=== PATIENT | female | born 1995 | race African-American/Black ===

== ENCOUNTER 2017-09-18 13:02 | Emergency (ER) | payer OTHER ==
[~2017-09-18 13:02] MED LIST: DEPO150I IM
[2017-09-18 13:04] VITALS: BP 149/84; PULSE 86; RESP 16; TEMP 98.3; O2SAT 100
--- NOTE | 2017-09-18 13:50 | PD ---
HPI Chief Complaint: Chest Pain Time Seen by Provider: 13:49 (Anni Ohara) Time Seen by Provider: 14:14 (Megha Damian DO) Travel History International Travel<30 days: No Contact w/Intl Traveler<30days: No Traveled to known affect area: No (Anni Ohara) History of Present Illness HPI Patient is a 21-year-old female presents to emergency room with complaints of chest pain. Patient reports that chest began 3 days ago, reports that chest pain is located her left chest and is sharp and stabbing in nature. Patient reports that it hurts every time she takes deep breath, reports that it hurts when she moves as well. Patient reports that chest pain is not associated with diaphoresis, nausea or vomiting. Patient denies any cough or chest wall injuries. Patient reports no drug abuse, denies any recent travels or trips, denies any history of PE or DVT. Patient denies any family history of early coronary disease. Patient reports that she did not take anything to help with her chest pain symptoms. Patient with no history of hypertension, diabetes, hyperlipidemia, or CAD. (Megha Damian DO) PFSH Past Medical History ?: Not LMP: Now (Anni Ohara) Medical History: Denies Significant Hx (Megha Damian DO) Past Surgical History Surgical History: No Previous Surgery (Megha Damian DO) Family History Family History: Negative (marijuana) Family Myocardial Infarction: No (Megha Damian DO) Social History Alcohol Use: No Tobacco Use: No Substance Use: Yes (Megha Damian DO) Allergies-Medications (Allergen,Severity, Reaction): Coded Allergies: No Known Allergies (Unverified Adverse Reaction, Unknown, 08/14/17) Reported Meds & Prescriptions Reported Meds & Active Scripts Active Depo-Provera Inj (Medroxyprogesterone Inj) 150 Mg/Ml Inj 150 Mg IM Q90D (Megha Damian DO) Review of Systems General / Constitutional: No: Fever Eyes: No: Visual changes HENT: No: Headaches Cardiovascular: Positive: Chest Pain or Discomfort, No: Palpitations, Irregular Rhythm, Tachycardia, Syncope, Dyspnea on exertion, Edema Respiratory: No: Cough, Shortness of Breath, Wheezing Gastrointestinal: No: Nausea, Vomiting, Abdominal Pain Genitourinary: No: Dysuria Musculoskeletal: No: Pain Skin: No Rash Neurologic: No: Weakness Psychiatric: No: Depression Endocrine: No: Polydipsia Hematologic/Lymphatic: No: Easy Bruising (Megha Damian DO) Physical Exam Narrative GENERAL: NAD, Nontoxic SKIN: Focused skin assessment warm/dry. HEAD: Atraumatic. Normocephalic. EYES: Pupils equal and round. No scleral icterus. No injection or drainage. ENT: No nasal bleeding or discharge. Mucous membranes pink and moist. NECK: Trachea midline. No JVD. CARDIOVASCULAR: Regular rate and rhythm. No murmur appreciated. Patient with reproducible left sided chest wall tenderness RESPIRATORY: No accessory muscle use. Clear to auscultation. Breath sounds equal bilaterally. GASTROINTESTINAL: Abdomen soft, non-tender, nondistended. Hepatic and splenic margins not palpable. MUSCULOSKELETAL: No obvious deformities. No clubbing. No cyanosis. No edema. NEUROLOGICAL: Awake and alert. No obvious cranial nerve deficits. Motor grossly within normal limits. Normal speech. PSYCHIATRIC: Appropriate mood and affect; insight and judgment normal. (Megha Damian DO) Data Data Last Documented VS Vital Signs Date Time Temp Pulse Resp B/P (MAP) Pulse Ox O2 Delivery O2 Flow Rate FiO2 09/18/17 13:04 98.3 86 16 149/84 (105) 100 Room Air (Megha Damian DO) Orders Orders Electrocardiogram (09/18/17 13:12) Ckmb (Isoenzyme) Profile (09/18/17 13:12) Complete Blood Count With Diff (09/18/17 13:12) Comprehensive Metabolic Panel (09/18/17 13:12) Magnesium (Mg) (09/18/17 13:12) Prothrombin Time / Inr (Pt) (09/18/17 13:12) Act Partial Throm Time (Ptt) (09/18/17 13:12) Troponin I (09/18/17 13:12) Chest, Pa & Lat (09/18/17 13:12) CKMB (09/18/17 13:25) CKMB% (09/18/17 13:25) Ed Urine Pregnancytest Poc (09/18/17 14:20) Ketorolac Inj (Toradol Inj) (09/18/17 14:30) (Megha Damian DO) Labs Laboratory Tests Test 09/18/17 13:25 White Blood Count 8.6 TH/MM3 Red Blood Count 4.74 MIL/MM3 Hemoglobin 13.1 GM/DL Hematocrit 39.1 % Mean Corpuscular Volume 82.4 FL Mean Corpuscular Hemoglobin 27.7 PG Mean Corpuscular Hemoglobin Concent 33.6 % Red Cell Distribution Width 15.3 % Platelet Count 277 TH/MM3 Mean Platelet Volume 8.2 FL Neutrophils (%) (Auto) 56.1 % Lymphocytes (%) (Auto) 36.8 % Monocytes (%) (Auto) 6.1 % Eosinophils (%) (Auto) 0.6 % Basophils (%) (Auto) 0.4 % Neutrophils # (Auto) 4.8 TH/MM3 Lymphocytes # (Auto) 3.2 TH/MM3 Monocytes # (Auto) 0.5 TH/MM3 Eosinophils # (Auto) 0.1 TH/MM3 Basophils # (Auto) 0.0 TH/MM3 CBC Comment DIFF FINAL Differential Comment Prothrombin Time 10.8 SEC Prothromb Time International Ratio 1.1 RATIO Activated Partial Thromboplast Time 27.9 SEC Blood Urea Nitrogen 7 MG/DL Creatinine 0.80 MG/DL Random Glucose 86 MG/DL Total Protein 7.6 GM/DL Albumin 4.0 GM/DL Calcium Level 9.2 MG/DL Magnesium Level 2.2 MG/DL Alkaline Phosphatase 67 U/L Aspartate Amino Transf (AST/SGOT) 5 U/L Alanine Aminotransferase (ALT/SGPT) 16 U/L Total Bilirubin 0.4 MG/DL Sodium Level 139 MEQ/L Potassium Level 3.8 MEQ/L Chloride Level 107 MEQ/L Carbon Dioxide Level 25.9 MEQ/L Anion Gap 6 MEQ/L Estimat Glomerular Filtration Rate 109 ML/MIN Total Creatine Kinase 189 U/L Creatine Kinase MB 0.5 NG/ML Troponin I LESS THAN 0.02 NG/ML (Megha Damian DO) [facility] Medical Decision Making Medical Screen Exam Complete: Yes Emergency Medical Condition: Yes Medical Record Reviewed: Yes Narrative Course 1355: EKG with NSR; reviwed by Dr. Kiser. (Anni Ohara) Medical Screen Exam Complete: Yes Emergency Medical Condition: Yes Medical Record Reviewed: Yes Interpretation(s) EKG at 1318: NSR at 87bpm, qt/qtc: 329/374, nonspecific t wave changes, no acute st seg changes Vital Signs Date Time Temp Pulse Resp B/P (MAP) Pulse Ox O2 Delivery O2 Flow Rate FiO2 09/18/17 13:04 98.3 86 16 149/84 (105) 100 Room Air Differential Diagnosis Costochondritis, ACS, arrhythmia, PE, pneumothorax Narrative Course During the course of the patients emergency department visit, the patients history, examination, and differential diagnosis were reviewed with the patient. The patient was placed on a hospital monitor with oximetry and frequent blood pressure monitoring. The patient had an IV access obtained and blood work sent for analysis. The patient was initially provided IV toradol. The patients laboratory studies were reviewed and remarkable for: CBC & BMP Diagram 09/18/17 13:25 Total Protein 7.6, Albumin 4.0, Calcium Level 9.2, Magnesium Level 2.2, Alkaline Phosphatase 67, Aspartate Amino Transf (AST/SGOT) 5 L, Alanine Aminotransferase (ALT/SGPT) 16, Total Bilirubin 0.4 Trop 0.02 Radiology studies were reviewed and remarkable for: Last Impressions Chest X-Ray 09/18/17 1312 Signed Impressions: Service Date/Time: September 13:32 - CONCLUSION: No acute cardiopulmonary process. Kevin Glover MD Patient low risk for PE and ACS at this time. She has no cardiac risk factors, heart score is 0. Patient is feeling better after she was given IV toradol. Patient with most likely costochondritis. I reviewed all labs and studies with patient in detail, she will follow up with her pcp and will return to ER as needed (Megha Damian DO) Diagnosis Primary Impression: Costochondritis, acute Referrals: Ronnie Merino MD Patient Instructions: Narcotic given in the ED Additional Instructions: Please follow up with defence intelligence analyst as needed Please follow up with your primary care doctor in 2-3 days Return to the ER if symptoms worsen or progress Return to the ER as needed Med/Other Pt SpecificInfo: Prescription(s) given (Megha Damian DO) Scripts Ibuprofen (Ibuprofen) 600 Mg Tab 600 MG PO Q6H Y for Pain/Inflammation, #40 TAB 0 Refills Prov: Megha Damian DO 09/18/17 Disposition: 01 DISCHARGE HOME Condition: Stable Anni Ohara Sep 18, 2017 13:50 Megha Damian DO Sep 18, 2017 14:41
[2017-09-18 13:54] LABS: AUTOMATED NEUTROPHIL # 4.8 TH/MM3 (1.8-7.7); BASOPHIL % 0.4 % (0.0-2.0); EOSINOPHIL # 0.1 TH/MM3 (0-0.4); EOSINOPHIL % 0.6 % (0.0-4.0); HEMATOCRIT 39.1 % (35.0-46.0); HEMOGLOBIN 13.1 GM/DL (11.6-15.3); LYMPH % 36.8 % (9.0-44.0); LYMPHOCYTE # 3.2 TH/MM3 (1.0-4.8); MEAN CELL VOLUME 82.4 FL (80.0-100.0); MEAN CORPUSCULAR HEMOGLOBIN 27.7 PG (27.0-34.0); MEAN CORPUSCULAR HGB CONC 33.6 % (32.0-36.0); MEAN PLATELET VOLUME 8.2 FL (7.0-11.0); MONO % 6.1 % (0.0-8.0); MONOCYTE # 0.5 TH/MM3 (0-0.9); NEUT % 56.1 % (16.0-70.0); PLATELET COUNT 277 TH/MM3 (150-450); RED BLOOD COUNT 4.74 MIL/MM3 (4.00-5.30); RED CELL DISTRIBUTION WIDTH 15.3 % (11.6-17.2); WHITE BLOOD COUNT 8.6 TH/MM3 (4.0-11.0)
--- NOTE | 2017-09-18 13:54 | RADRPT ---
EXAM DATE/TIME: 09/18/2017 13:32 [facility] COMPARISON: No previous studies available for comparison. INDICATIONS : Chest pain, shortness of breath. MEDICAL HISTORY : Smoker. SURGICAL HISTORY : None. ENCOUNTER: Initial ACUITY: 4 - 6 days PAIN SCORE: 10/10 LOCATION: Left chest FINDINGS: PA and lateral views of the chest demonstrate the lungs to be symmetrically aerated without evidence of mass, infiltrate or effusion. The cardiomediastinal contours are unremarkable. Osseous structure s are intact. CONCLUSION: No acute cardiopulmonary process. Kevin Glover MD on September 18, 2017 at 13:52 Board Certified Radiologist. This report was verified electronically.
[2017-09-18 14:08] LABS: INTERNATIONAL NORMALIZED RATIO 1.1 RATIO; PROTHROMBIN TIME - PATIENT 10.8 SEC (9.8-11.6)
[2017-09-18 14:11] LABS: ALT (GPT) 16 U/L (10-53); AST (GOT) 5 U/L (15-37); BICARBONATE 25.9 MEQ/L (21.0-32.0); BLOOD UREA NITROGEN 7 MG/DL (7-18); CALCIUM 9.2 MG/DL (8.5-10.1); CHLORIDE 107 MEQ/L (98-107); GLOMERULAR FILTRATION RATE 109 ML/MIN (>89); GLUCOSE,RANDOM 86 MG/DL (74-106); MAGNESIUM 2.2 MG/DL (1.5-2.5); SODIUM (NA) 139 MEQ/L (136-145)
[2017-09-18 14:16] LABS: ALKALINE PHOSPHATASE 67 U/L (45-117); TOTAL BILIRUBIN ADULT 0.4 MG/DL (0.2-1.0); TOTAL PROTEIN 7.6 GM/DL (6.4-8.2); TROPONIN I LESS THAN 0.02 NG/ML (0.02-0.05)
[2017-09-18] MEDS ORDERED: KETOROLAC TROMETHAMINE 30 MG/ML (IVP) VIAL IV PUSH ONE (14:30)
[2017-09-18] MEDS ORDERED: IBUP-232 PO (16:40)
--- NOTE | 2017-09-20 12:22 | EKG ---
Date Performed: 09/18/2017 Time Performed: 13:18:57 PTAGE: 21 years EKG: Sinus rhythm WITH SINUS ARRHYTHMIA NONSPECIFIC T-WAVE ABNORMALITY BORDERLINE ECG NO PREVIOUS TRACING DOCTOR: Mariah Bhatt Interpretating Date/Time 09/20/2017 12:20:49
== END 2017-09-18 16:58 | disposition home or self-care (01) ==
LOC: NEPD 13:02
DX: M94.0 Chondrocostal junction syndrome [Tietze] (principal); R94.31 Abnormal electrocardiogram [ECG] [EKG]
CPT/HCPCS: 71020; 80053; 82550; 82552; 83735; 84484; 84703; 85025; 85610; 85730; 93005; 96374; 99285; J1885